=== PATIENT | female | born 1940 | race Caucasian/White ===

== ENCOUNTER 2016-10-28 00:33 | Inpatient (IN) | payer OTHER, MEDICARE ==
[2016-10-28] VITALS (7 sets, daily range): BP systolic 108–147; BP diastolic 48–71; Ht 170.2 cm; Wt 72.6 kg
[~2016-10-28] VITALS: Ht 170.2 cm; Wt 72.6 kg
[~2016-10-28 00:33] MED LIST: AMITRIPTYLINE H50 MG PO; AMITRIPTYLINE100 MG; AMITRIPTYLINE100 MG PO; ANT12.5 PO; APAP/HYDROCODON1 T13 PO; BAY PO; CARISOPRODOL350 MG; CARISOPRODOL350 MG PO; CIPRO250 MG PO; CIPROFLOXACIN500 MG PO; COL100 PO; COLACE100 MG PO; ECO81 PO; ELA50 PO; FLA500 PO; FLUOXETINE HCL20 MG; FLUOXETINE HCL20 MG PO; FLUOXETINE40 MG PO; GABAPENTIN800 M1 PO; HEP5I SC; KEFLEX500 MG PO; LAC PO; LEVOTHYROXIN0.125 M1 PO; LIPI10 PO; LOR; LOR PO; MAC100 PO; METHADONE HYDRO10 MG PO; NEURONTIN400 MG PO; PRI20 PO; RES15 PO; ROC1I IV; SOM350 PO; SYN125 PO; TYL325 PO; ZOLPIDEM TARTRA10 MG PO
[2016-10-28 01:37] LABS: CALCIUM 8.6 mg/dL (8.5-10.1); CHLORIDE SERUM 107 mmol/L (98-107); CREATININE SERUM 0.9 mg/dL (0.6-1.0); GLUCOSE SERUM 109 mg/dL (74-106); POTASSIUM SERUM 3.8 mmol/L (3.5-5.1); SODIUM SERUM 142 mmol/L (136-145)
[2016-10-28 01:44] LABS: ALKALINE PHOSPHATASE 137 U/L (46-116); ALT/SGPT 75 U/L (14-59); AST/SGOT 93 U/L (15-37); BILIRUBIN TOTAL 0.72 mg/dL (0.20-1.00); MAGNESIUM 1.8 mg/dL (1.8-2.4); TOTAL PROTEIN, SERUM 6.3 g/dL (6.4-8.2)
[2016-10-28 01:45] LABS: ALBUMIN 3.3 g/dL (3.4-5.0)
[2016-10-28 01:51] LABS: CK-MB 18.6 ng/mL (0-3.6)
[2016-10-28 02:29] LABS: BASOPHIL % 1.5 % (0-2)
[2016-10-28 02:50] LABS: PLATELET COUNT 81 x10^3mcL (130-400); RED CELL DISTRIBUTION WIDTH 14.8 % (11.5-14.5)
[2016-10-28] MEDS ORDERED: NAMENDA10 M2 PO (04:02)
[2016-10-28 05:09] LABS: CHOLESTEROL/HDL RATIO 2.3; PHOSPHOROUS 2.8 mg/dL (2.5-4.9)
[2016-10-28 05:16] LABS: FREE T4 1.03 ng/dL (0.76-1.46); FREE THYROXINE INDEX 2.5 ug/dL (1.4-4.5); T3 TOTAL 0.72 ng/mL; T4(THYROXINE) 7.1 ug/dL (4.7-13.3)
[2016-10-29 05:50] VITALS: BP 116/60
[2016-10-29 07:28] LABS: RED CELL DISTRIBUTION WIDTH 15.6 % (11.5-14.5)
[2016-10-29 07:40] LABS: CALCIUM 7.7 mg/dL (8.5-10.1); CHLORIDE SERUM 111 mmol/L (98-107); CREATININE SERUM 0.8 mg/dL (0.6-1.0); GLUCOSE SERUM 73 mg/dL (74-106); MAGNESIUM 1.7 mg/dL (1.8-2.4); POTASSIUM SERUM 3.6 mmol/L (3.5-5.1); SODIUM SERUM 145 mmol/L (136-145)
[2016-10-29 07:53] LABS: BAND NEUTROPHIL 0 % (0-10); MONOCYTE 6 % (0-7); SEGMENTED NEUTROPHILS 70 % (37-75); rbc morphology (normal/abnorm) ABNORMAL (NORMAL)
[2016-10-29 09:40] LABS: BASOPHIL % 0.5 % (0-2)
[2016-10-29 09:42] LABS: PLATELET COUNT 67 x10^3mcL (130-400); RED CELL DISTRIBUTION WIDTH 15.9 % (11.5-14.5)
[2016-10-29 09:58] VITALS: BP 109/56
[2016-10-29 11:41] LABS: PLATELET COUNT 49 x10^3mcL (130-400)
[2016-10-29 13:09] VITALS: BP 126/68
[2016-10-29 14:38] LABS: UA SPECIFIC GRAVITY >=1.030 (1.005-1.035); microscopic required? YES; urine erythrocyte NEGATIVE (NEGATIVE)
[2016-10-29 17:22] VITALS: BP 122/57
[2016-10-29 18:00] LABS: TOTAL IRON BINDING CAPACITY 254 ug/dL (250-450)
[2016-10-29 18:03] LABS: IRON 20 ug/dL (50-170)
[2016-10-29 22:03] VITALS: BP 171/83
[2016-10-29 22:08] VITALS: BP 141/77
[2016-10-30 06:17] VITALS: BP 119/60
[2016-10-30 06:37] LABS: CALCIUM 7.4 mg/dL (8.5-10.1); CARBON DIOXIDE 27.3 mmol/L (21-32); CHLORIDE SERUM 109 mmol/L (98-107); CREATININE SERUM 0.9 mg/dL (0.6-1.0); GLUCOSE SERUM 82 mg/dL (74-106); MAGNESIUM 1.8 mg/dL (1.8-2.4); PHOSPHOROUS 3.2 mg/dL (2.5-4.9); POTASSIUM SERUM 3.9 mmol/L (3.5-5.1); SODIUM SERUM 143 mmol/L (136-145)
[2016-10-30 07:19] LABS: PLATELET COUNT 50 x10^3mcL (130-400); RED CELL DISTRIBUTION WIDTH 15.8 % (11.5-14.5)
[2016-10-30 09:42] VITALS: BP 101/54
[2016-10-30 10:20] LABS: BILIRUBIN DIRECT 0.06 mg/dL (0.0-0.2); BILIRUBIN TOTAL 0.2 mg/dL (0.20-1.00)
[2016-10-30 10:24] LABS: ALBUMIN 2.5 g/dL (3.4-5.0); TOTAL PROTEIN, SERUM 5.2 g/dL (6.4-8.2)
[2016-10-30 11:10] LABS: SEGMENTED NEUTROPHILS 54 % (37-75)
[2016-10-30 11:11] LABS: ATYPICAL LYMPH 2 %; MONOCYTE 4 % (0-7); rbc morphology (normal/abnorm) ABNORMAL (NORMAL)
[2016-10-30 11:12] LABS: PLATELET MORPHOLOGY PLATELETS DECREASED
[2016-10-30 17:49] VITALS: BP 147/77
[2016-10-30 21:16] VITALS: BP 132/73
[2016-10-31 05:49] VITALS: BP 148/61
[2016-10-31 07:45] VITALS: BP 149/68
[2016-10-31] MEDS ORDERED: AMITRIPTYLINE100 MG PO (15:24)
[2016-10-31] MEDS ORDERED: LEVOTHYROXIN0.088 M1 PO (17:02)
[2016-10-31 17:28] VITALS: BP 149/68
== END 2016-10-31 18:08 | DRG 48 ==
LOC: ED 00:33 → DU 03:47 → MU 03:47 → DU 05:07 → MU 10-30 10:20
PROVIDERS: Emergency Medicine; Family Medicine; Internal Medicine Gastroenterology; ADMIT Family Medicine
DX: G90.9 Disorder of the autonomic nervous system, unspecified (principal); N17.0 Acute kidney failure with tubular necrosis; E44.1 Mild protein-calorie malnutrition; I27.2 Other secondary pulmonary hypertension; D69.6 Thrombocytopenia, unspecified; G30.8 Other Alzheimer's disease; F02.80 Dementia in other diseases classified elsewhere, unspecified severity, without behavioral disturbance, psychotic disturbance, mood disturbance, and anxiety; F32.9 Major depressive disorder, single episode, unspecified; E78.5 Hyperlipidemia, unspecified; E03.9 Hypothyroidism, unspecified; G62.9 Polyneuropathy, unspecified; I35.8 Other nonrheumatic aortic valve disorders; G30.9 Alzheimer's disease, unspecified; Z90.49 Acquired absence of other specified parts of digestive tract; Z90.710 Acquired absence of both cervix and uterus; Z83.3 Family history of diabetes mellitus; Z80.9 Family history of malignant neoplasm, unspecified
CPT/HCPCS: 83880; 84439; 97110-GP; 97116-GP; 97530-GP; J0696; J2270; J3475; J3490; J7030; Q0092; Q9966; Q9967

== ENCOUNTER 2016-12-06 05:08 | Emergency (ER) | payer MEDICARE, OTHER ==
[~2016-12-06] VITALS: Ht 170.2 cm; Wt 77.1 kg
[~2016-12-06 05:08] MED LIST changes: +LEVOTHYROXIN0.088 M1 PO; +NAMENDA10 M2 PO
[2016-12-06 05:46] LABS: PLATELET COUNT 65 x10^3mcL (130-400); RED CELL DISTRIBUTION WIDTH 17.6 % (11.5-14.5)
[2016-12-06 05:49] LABS: CALCIUM 8.3 mg/dL (8.5-10.1); CARBON DIOXIDE 30.5 mmol/L (21-32); CHLORIDE SERUM 107 mmol/L (98-107); CREATININE SERUM 1.1 mg/dL (0.6-1.0); GLUCOSE SERUM 93 mg/dL (74-106); POTASSIUM SERUM 3.5 mmol/L (3.5-5.1); SODIUM SERUM 144 mmol/L (136-145)
[2016-12-06 05:54] LABS: ALKALINE PHOSPHATASE 84 U/L (46-116); ALT/SGPT 36 U/L (14-59); AST/SGOT 50 U/L (15-37); BILIRUBIN TOTAL 0.3 mg/dL (0.20-1.00); TOTAL PROTEIN, SERUM 6.4 g/dL (6.4-8.2)
[2016-12-06 05:56] LABS: ALBUMIN 3.2 g/dL (3.4-5.0)
[2016-12-06 06:08] LABS: BAND NEUTROPHIL 2 % (0-10); MONOCYTE 7 % (0-7); SEGMENTED NEUTROPHILS 73 % (37-75)
[2016-12-06 06:09] LABS: rbc morphology (normal/abnorm) ABNORMAL (NORMAL)
[2016-12-06 06:10] LABS: ovalocyte/elliptocyte 1+
--- NOTE | 2016-12-06 09:27 | NUR ---
SOCIAL SERVICE NOTE: FOLLOW-UP ON REQUEST TO ASSIST THIS PT WITH A DC PLAN. SHE WAS SEEN IN THE ER AND THERE WAS SOME CONCERN RE SENDING HER BACK TO HER APARTMENT WHERE SHE LIVES ALONE. SHE HAS HAD MULTIPLE HOSPITAL VISITS AND IS FAMILIAR TO THIS FACILITY. I MET WITH HER AT BEDSIDE. SHE IS A/O AND COOPERATIVE THOUGH VERY EMOTIONAL RE HER CIRCUMSTANCES. WE REVIEWED CARE OPTIONS AND SHE PREFERRED TO RETURN TO [facility] IF POSSIBLE AND REPORTED THAT SHE AND HER SON ARE STILL WORKING ON A MORE [employer] ARRANGEMENT FOR HER TO LIVE WITH HIM AND HIS FAMILY IN [facility] [facility]. I SPOKE WITH THE SON, CIPRIANO, BY PHONE AND REVIEWED WHERE THEY WERE WITH THE CORRECTION PLAN. AT THIS POINT, THE PT HAS BEEN APPROVED FOR [facility] IN [place] BUT HE HAS NOT YET FOUND AN AVAILABLE HOME WITHIN THE [facility] RE[facility]BURSEMENT BUT HE CONTINUES TO WORK ON THIS PLAN. HE IS WILLING TO TAKE HER HOME WITH HIM AT THIS TIME BUT KNOWS THAT THE PT WILL BE RESISTENT TO THIS. HE WAS AGREEABLE TO HAVE THE PT GO TO [facility] IF ACCEPTED. I CALLED AND SPOKE WITH NERIS IN CASE MANAGEMENT AT [facility] ([phone]) AND WAS ABLE TO CONFIRM THAT THEY RECENTLY RECEIVED APPROVAL FOR THIS PT TO RETURN TO THEIR FACILITY A RETIREMENT PT. SHE REPORTED THAT SHE HAS A BED AVAILABLE TODAY, ROOM 111-A, UNDER THE CARE OF THE PT'S PCP, DR. ZELAYA. I CALLED AND SPOKE WITH ELIZABETH AT [facility]NAG[facility] ([phone]) AND SHE CONFIRMED THAT PT WAS APPROVED TO GO TO [facility]. SHE ALSO APPROVED FOR PT TO BE TRANSPORTED VIA [facility] ([phone]), AUTH# [id number]. I CONTACTED BELIA AT [facility] AND ARRANGED PICK-UP AT APPROXIMATELY 1100 TODAY. I LEFT A MESSAGE WITH THE SON. (HE HAD INDICATED THAT HE WAS HEADING FOR WORK AND MAY NOT BE ABLE TO ANSWER HIS PHONE SO A VOICE MESSAGE RE THE PLAN WOULD BE OK WITH HIM). I WILL FOLLOW WITH THE PT AND THE ER PHYSICIAN AND NURSING TO UPDATE THEM RE THE PLAN.
[2016-12-06 10:17] VITALS: BP 136/90
== END 2016-12-06 10:17 | disposition home or self-care (01) ==
LOC: ED 05:08
PROVIDERS: Emergency Medicine
DX: R60.9 Edema, unspecified (principal); G89.29 Other chronic pain; E03.9 Hypothyroidism, unspecified; G62.9 Polyneuropathy, unspecified
CPT/HCPCS: 83880; Q0092